=== PATIENT | male | born 1950 | race Caucasian/White ===

== ENCOUNTER 2017-06-07 22:49 | Observation (INO) | payer OTHER ==
[~2017-06-07] VITALS: Ht 167.6 cm; Wt 82.7 kg
[~2017-06-07 22:49] MED LIST: AMOXICILLIN500 M PO; ATENOLOL50 M1 PO; ATENOLOL50 MG PO; ATORVASTATIN CA40 M1 PO; CALCIUM + VITA1 EAC4; CALCIUM 500 +1 EA10 PO; CIPRO500 M2 PO; CITALOPRAM HBR40 M1 PO; COUMADIN2 MG PO; COUMADIN4 MG PO; COUMADIN6 M1 PO; CRESTOR20 MG PO; ETODOLAC; ETODOLAC400 MG PO; FLAGYL500 M1 PO; GABAPENTIN; GABAPENTIN300 MG PO; HYDROCODON-ACE1 EACH PO; LANOXIN250 MC1 PO; LIPITOR40 M1 PO; LISINOPRIL10 M1 PO; LOPERAMIDE2 M2 PO; LOPRESSOR50 M1 PO; NEURONTIN300 M1 PO; NORVASC5 M2 PO; PRILOSEC20 MG PO; PROTONIX40 M2 PO; SILVADENE20 GM TP; ULTRAM ER200 MG PO; ULTRAM50 M1 PO; VIAGRA100 M1 PO; VITAMIN C500 M1 PO; VITAMIN D; VITAMIN D-32000 UNI3 PO
[2017-06-07] MEDS ORDERED: XARELTO20 M1 PO (22:55)
[2017-06-07 23:12] LABS: BASO % 0.2 % (0-2); EOS % 0.5 % (0-7); EOSINOPHIL ABSOLUTE COUNT 0.1 tho/cmm (0.0-0.7); HGB-HEMOGLOBIN 12.1 gm/dl (13.5-17.0); IMMATURE GRANULOCYTES ABSOLUTE 0.03 tho/cmm (0-0.03); IMMATURE GRANULOCYTES PERCENT 0.3 % (0-0.3); LYMPH % 8.8 % (20-45); LYMPH ABSOLUTE COUNT 0.9 tho/cmm (0.8-4.5); MCH (MEAN CORPUSCULAR HGB) 28.5 pg (28.0-32.0); MCHC MEAN CORPUSCULAR HGB CONC 33.6 % (32.0-36.0); MCV (MEAN CELL VOLUME) 84.9 fl (82.0-96.0); MONO % 6.6 % (0-12); MONOCYTE ABSOLUTE COUNT 0.7 tho/cmm (0.0-1.2); NEUTROPHIL ABSOLUTE COUNT 8.7 tho/cmm (1.6-8.0); NEUTROPHIL-AUTOMATED 8.7 tho/cmm (1.6-8.0); NEUTROPHILS % 83.6 % (40-80); PLATELET COUNT 247 tho/cmm (150-450); RED BLOOD COUNT 4.24 mil/cmm (4.40-5.70); RED CELL DISTRIBUTION WIDTH 14.1 % (12.4-16.4); WHITE BLOOD COUNT 10.3 tho/cmm (4.0-10.0)
[2017-06-07 23:21] LABS: INR 1.2 INR (0.9-1.1); PROTHROMBIN TIME 14.7 SECONDS (9.0-13.6)
[2017-06-07 23:36] LABS: ALB/GLOB RATIO 0.6 (0.8-2.0); ALBUMIN 2.9 g/dl (3.5-5.0); ALKALINE PHOSPHATASE 100 U/L (33-138); ALT/SGPT 47 U/L (12-78); ANION GAP 13 mmol/L (0-20); AST/SGOT 37 U/L (10-40); BILIRUBIN,TOTAL 1.7 mg/dl (0.0-1.5); BLOOD UREA NITROGEN 17 mg/dl (6-24); CALCIUM 8.8 mg/dl (8.5-10.5); CARBON DIOXIDE-VENOUS 25 mmol/L (22-32); CHLORIDE 101 mmol/l (96-110); CREATININE 1.01 mg/dl (0.60-1.30); GLUCOSE 93 mg/dL (70-110); POTASSIUM 3.8 mmol/L (3.7-5.1); SODIUM 135 mmol/L (135-145); eGFR VALUE FOR BLACK >90 mL/Min
[2017-06-08 00:02] LABS: ALCOHOL (ETOH) <10 mg/dl (<10)
[2017-06-08 05:53] LABS: ANION GAP 15 mmol/L (0-20); BLOOD UREA NITROGEN 17 mg/dl (6-24); CALCIUM 8.7 mg/dl (8.5-10.5); CARBON DIOXIDE-VENOUS 26 mmol/L (22-32); CHLORIDE 101 mmol/l (96-110); CREATININE 1.03 mg/dl (0.60-1.30); GLUCOSE 86 mg/dL (70-110); MAGNESIUM 2.1 mg/dl (1.8-2.6); POTASSIUM 3.7 mmol/L (3.7-5.1); SODIUM 138 mmol/L (135-145); eGFR VALUE FOR BLACK 88 mL/Min
[2017-06-08 05:57] LABS: TSH-THYROID STIMULATING HORM. 1.08 uIU/ml (0.40-3.80)
[2017-06-09 05:14] LABS: BASO % 0.3 % (0-2); EOS % 1.5 % (0-7); EOSINOPHIL ABSOLUTE COUNT 0.1 tho/cmm (0.0-0.7); HCT-HEMATOCRIT 34.2 % (36.0-53.5); HGB-HEMOGLOBIN 11.3 gm/dl (13.5-17.0); IMMATURE GRANULOCYTES ABSOLUTE 0.03 tho/cmm (0-0.03); IMMATURE GRANULOCYTES PERCENT 0.4 % (0-0.3); LYMPH % 15.7 % (20-45); LYMPH ABSOLUTE COUNT 1.2 tho/cmm (0.8-4.5); MCH (MEAN CORPUSCULAR HGB) 27.9 pg (28.0-32.0); MCV (MEAN CELL VOLUME) 84.4 fl (82.0-96.0); MEAN PLATELET VOLUME 8.7 cmc (9.4-12.4); MONO % 9.4 % (0-12); MONOCYTE ABSOLUTE COUNT 0.7 tho/cmm (0.0-1.2); NEUTROPHIL ABSOLUTE COUNT 5.6 tho/cmm (1.6-8.0); NEUTROPHIL-AUTOMATED 5.6 tho/cmm (1.6-8.0); NEUTROPHILS % 72.7 % (40-80); PLATELET COUNT 260 tho/cmm (150-450); RED BLOOD COUNT 4.05 mil/cmm (4.40-5.70); RED CELL DISTRIBUTION WIDTH 14.2 % (12.4-16.4); WHITE BLOOD COUNT 7.8 tho/cmm (4.0-10.0)
[2017-06-09 05:31] LABS: ANION GAP 11 mmol/L (0-20); BLOOD UREA NITROGEN 23 mg/dl (6-24); CALCIUM 8.4 mg/dl (8.5-10.5); CARBON DIOXIDE-VENOUS 27 mmol/L (22-32); CHLORIDE 96 mmol/l (96-110); GLUCOSE 101 mg/dL (70-110); POTASSIUM 3.4 mmol/L (3.7-5.1); SODIUM 131 mmol/L (135-145); eGFR VALUE FOR BLACK 61 mL/Min
[2017-06-09] MEDS ORDERED: LIPITOR40 M1 PO (11:49)
[2017-06-10] MEDS ORDERED: TOPROL XL50 M1 PO (10:24)
[2017-06-10] MEDS ORDERED: LASIX40 M1 PO (10:26)
[2017-06-10] MEDS ORDERED: POTASSIUM CHLO10 ME2 PO (10:26)
== END 2017-06-10 13:50 ==
LOC: EDMED 22:49 → PCUB 06-08 03:19 → EMR2 06-08 03:19 → PCUB 06-08 03:40
PROVIDERS: Emergency Medicine; Internal Medicine Cardiovascular Disease; ADMIT Internal Medicine Cardiovascular Disease
DX: I48.2 Chronic atrial fibrillation (principal); I10 Essential (primary) hypertension; E78.5 Hyperlipidemia, unspecified; I34.0 Nonrheumatic mitral (valve) insufficiency; I36.1 Nonrheumatic tricuspid (valve) insufficiency; I27.2 Other secondary pulmonary hypertension; R07.89 Other chest pain; Z79.01 Long term (current) use of anticoagulants; Z79.899 Other long term (current) drug therapy; Z98.890 Other specified postprocedural states
CPT/HCPCS: A9500; C8929; G0480; J1650; J1940; J2785; J7030